=== PATIENT | female | born 1955 | race Asian ===

== ENCOUNTER 2017-09-09 13:02 | Inpatient (IN) ==
[2017-09-09] MEDS ORDERED: 0.9 % Sodium Chloride 1,000 ML IVC ONE ×2 (13:19→14:30)
[2017-09-09 13:58] LABS: Basophils # 0.1 K/mcL (0.0-0.2); Basophils % 0.3 %; Bilirubin,Urine Small (Negative); Blood,Urine Large (Negative); Clarity,Urine Cloudy (Clear); Color,Urine Dark Yellow (Yellow); Glucose,Urine (UA) Normal (Normal); Hematocrit 47.4 % (35.3-44.9); Hemoglobin 15.9 g/dL (11.5-15.4); Immature Granulocytes % 0.8 % (0-4); Ketones,Urine 40 mg/dL (Negative); Leukocyte Esterase,Urine Negative (Negative); Lymphocytes # 4.8 K/mcL (0.6-4.6); Lymphocytes % 24.3 %; Mean Corpuscular HGB Conc 33.5 g/dL (31.6-35.5); Mean Corpuscular Hemoglobin 30.9 pg (28.0-33.3); Mean Corpuscular Volume 92.2 fL (83.0-100.0); Mean Platelet Volume 10.5 fL (9.4-12.4); Monocytes # 2.8 K/mcL (0.0-1.3); Monocytes % 14.4 %; Neutrophils # 11.8 K/mcL (1.6-8.9); Nitrite,Urine Negative (Negative); Platelet Count 188 K/mcL (140-400); Protein,Urine 100 mg/dL (Neg-Trace); Red Blood Count 5.14 M/mcL (3.82-4.97); Segmented Neutrophils % 60.2 %; Specific Gravity,Urine 1.028 (1.010-1.025); Urobilinogen,Urine Normal (Normal)
[2017-09-09 14:01] LABS: INR 1.1; Prothrombin Time 12.3 Seconds (9.4-12.1)
[2017-09-09 14:03] LABS: RBC,Urine 15-30 per hpf (0-3)
[2017-09-09 14:14] LABS: Albumin 4.3 g/dL (3.5-5.7); Albumin/Globulin Ratio 1.2 (1.1-2.2); Bilirubin,Direct 0.1 mg/dL (0.0-0.2); Bilirubin,Indirect 0.3 mg/dL (0.0-1.2); Bilirubin,Total 0.4 mg/dL (0.3-1.0); Calcium 9.2 mg/dL (8.6-10.3); Globulin 3.7 g/dL (2.4-3.5); Magnesium 2.2 mg/dL (1.6-2.6); Phosphorous 4.6 mg/dL (2.7-4.5); Potassium 4.4 mEq/L (3.5-5.1)
[2017-09-09 14:20] LABS: Granular Casts,Urine Moderate per lpf (None Seen); Hyaline Casts,Urine Few per lpf (None-Few)
[2017-09-09 14:21] LABS: Amorphous Sediment,Urine Many (Few); Squamous Epithelial Cell,Urine Few per lpf (None-Few)
[2017-09-09 14:22] LABS: Bacteria,Urine Moderate per hpf (None-Few)
--- NOTE | 2017-09-09 15:05 | Emergency Department Note ---
Disposition Clinical Impression: Influenza Leukocytosis Qualifiers: Leukocytosis type: other Qualified Code(s): D72.828 - Other elevated white blood cell count Disposition: Admitted As Inpatient Condition: Good Referrals: Howie Peacock MD [Primary Care Provider] - Forms: ED Satisfaction Letter, Work/School Release General Adult HPI - General Chief complaint: ED General Medical Stated complaint: flu-like S/S Time Seen by Provider: 09/09/17 13:06 Source: patient, EMS Limitations: no limitations Nursing Notes Reviewed: Yes Vital Signs Reviewed: Yes - History of Present Illness HPI Narrative: Patient with past medical history of hepatitis C and HIV. Last CD4 count she states was fairly recent in 230. Previous records show that her CD4 count was 234 in August 2016. Patient presents today with flulike symptoms 3 days. She complains of diffuse body aches frontal headache generalized abdominal pain and cough. Cough is been nonproductive in nature. No wheezing or rhonchi heard. Subjective fever and chills at home. No temperature was measured at home. Patient has had decreased by mouth intake secondary to overall symptoms and mild nausea. Patient used to follow with with Dr. Hutson and infectious disease here but has transferred to someone closer to home. Patient states she does take all of her HIV and hepatitis C medications on a regular basis. Patient does have a history of COPD. Patient has been taking all of her inhalers as well. Patient finds chest pain is on the lateral sides of her chest and worse with coughing. Patient overall arrives tachycardic and appears to be mildly dehydrated. Pain Scale: 9 - Related Data Home Medications Medication Instructions Recorded Confirmed ALPRAZolam [Xanax 1 MG Tablet] 1 mg PO TID PRN 09/09/17 09/09/17 Albuterol Sulfate [Albuterol 1 - 2 puff IH Q4-6H PRN 09/09/17 09/09/17 Inhaler] Baclofen [Lioresal] 10 mg PO HS 09/09/17 09/09/17 Dronabinol [Marinol] 5 mg PO TID 09/09/17 09/09/17 Efavirenz/Emtricitab/Tenofovir 1 tab PO DAILY 09/09/17 09/09/17 [Atripla Tablet] Ergocalciferol (VITAMIN D2) 50,000 unit PO 2XW 09/09/17 09/09/17 [Vitamin D2] HydrOXYzine Pamoate [Vistaril] 50 mg PO QID 09/09/17 09/09/17 Omeprazole [PriLOSEC] 20 mg PO DAILY 09/09/17 09/09/17 Oxycodone HCl [Oxaydo] 5 mg PO Q6H 09/09/17 09/09/17 Penicillin VK [Pencillin VK] 500 mg PO QID 09/09/17 09/09/17 Pregabalin [Lyrica] 150 mg PO TID 09/09/17 09/09/17 Promethazine HCl 12.5 mg PO Q8H PRN 09/09/17 09/09/17 Tiotropium [Spiriva] 18 mcg IH DAILY 09/09/17 09/09/17 Allergies Allergy/AdvReac Type Severity Reaction Status Date / Time No Known Allergies Allergy Verified 01/22/16 18:26 Review of Systems: CONSTITUTIONAL: Fever, chills, weakness and fatigue HEENT: Eyes: No visual changes. Ears, Nose, Throat: No hearing loss, difficulty talking or unable to swallow. SKIN: No rash or itching. CARDIOVASCULAR: Lateral chest with coughing RESPIRATORY: Cough. GASTROINTESTINAL: No anorexia, nausea, vomiting or diarrhea. No abdominal pain or blood. GENITOURINARY: No burning on urination or hematuria. NEUROLOGICAL: Headache-frontal No dizziness, syncope, paralysis, ataxia, numbness or tingling in the extremities. No change in bowel or bladder control. MUSCULOSKELETAL: Diffuse body aches All systems ED: reviewed and negative except as stated. Past Medical History - Past Medical History Medical history: Reports: COPD, fibromyalgia, hepatitis, HIV/AIDS Surgical history: Reports: non-contributory Psychiatric history: Reports: anxiety, panic disorder, PTSD - Social History Smoking Status: Current every day smoker Smokeless Tobacco Status: No Alcohol use: Reports: none Drug use: Reports: none Physical Exam General: Dehydrated Head: Normocephalic Atraumatic Eyes: PERRL, EOMI ENT: Airway patent, no stridor Neck: supple, no meningismus Chest: Lungs clear to auscultation bilateral Cardiac: Regular rate and rhythm, no murmurs, rubs or gallops Abdomen: soft, mild generalized, nondistended; no guarding, rebound, or tenderness to percussion Musculoskeletal: Calves symmetric, nontender, no palpable cord Skin: No rash, normal skin tone Neuro: Alert and Oriented to person, place, and time; No focal deficit - General Limitations: no limitations General appearance: alert, in no apparent distress Course - Reevaluation(s) Reevaluation #1: Patient with tachycardia and significantly elevated white count in the setting of HIV and unknown CD4 count. Chest x-ray negative. Patient will undergo CT abdomen and pelvis. Influenza B+. Tamiflu started. After discussion with the hospitalist. She has been laced on broad-spectrum antibiotics including cefepime and azithromycin. Maintenance fluids have been started. - Consultations Consultation #1: Discussed with . The patient's most recent CD4 count is from 2017. This has been sent. The lab was called and this will take 2 days to return. Initial chest x-ray negative. CT abdomen and pelvis is negative. There was confusion in regards to whether the chest x-ray was done or not. Initially the patient was going to just get a CT scan of her abdomen and pelvis with now the addition of the chest. However after looking at where she has in her workup; she has already received her CT abdomen and pelvis and the chest x- ray is indeed negative. Vital Signs Temperature 98.7 F 09/09/17 13:03 Pulse Rate 112 09/09/17 13:03 Respiratory Rate 13 09/09/17 13:03 Blood Pressure 101/75 09/09/17 13:03 O2 Sat by Pulse Oximetry 94 09/09/17 13:03 Temperature 98.7 F 09/09/17 13:03 Pulse Rate 112 09/09/17 13:03 Respiratory Rate 13 09/09/17 13:03 Blood Pressure 101/75 09/09/17 13:03 O2 Sat by Pulse Oximetry 94 09/09/17 13:03 Oxygen Delivery Oxygen Delivery Room Air Medical Decision Making - Medical Records Medical records reviewed: Yes I reviewed the patient's medical records. - Lab Data Lab results reviewed: Yes I reviewed the patient's lab results. Result diagrams: 09/09/17 13:46 09/09/17 13:46 Lab Results 09/09/17 09/09/17 09/09/17 Range/Units 13:46 13:46 13:46 WBC 19.6 H (4.3-11.1) K/mcL RBC 5.14 H (3.82-4.97) M/mcL Hgb 15.9 H (11.5-15.4) g/dL Hct 47.4 H (35.3-44.9) % MCV 92.2 (83.0-100.0) fL MCH 30.9 (28.0-33.3) pg MCHC 33.5 (31.6-35.5) g/dL RDW 13.0 (11.5-14.5) % Plt Count 188 (140-400) K/mcL MPV 10.5 (9.4-12.4) fL Immature Gran % 0.8 (0-4) % Seg Neutrophils % 60.2 % Lymphocytes % 24.3 % Monocytes % 14.4 % Eosinophils % 0.0 % Basophils % 0.3 % Neutrophils # 11.8 H (1.6-8.9) K/mcL Lymphocytes # 4.8 H (0.6-4.6) K/mcL Monocytes # 2.8 H (0.0-1.3) K/mcL Eosinophils # 0.0 (0.0-0.6) K/mcL Basophils # 0.1 (0.0-0.2) K/mcL PT 12.3 H (9.4-12.1) Seconds INR 1.1 Sodium (136-145) mEq/L Potassium (3.5-5.1) mEq/L Chloride (98-107) mEq/L Carbon Dioxide (23-29) mEq/L BUN (8-23) mg/dL Creatinine (0.60-1.20) mg/dL Est GFR ( Amer) (> 60) Est GFR (Non-Af Amer) (> 60) BUN/Creatinine Ratio (6-26) Glucose (70-105) mg/dL Calculated Osmolality (280-300) Lactic Acid (0.5-2.2) mmol/L Calcium (8.6-10.3) mg/dL Phosphorus (2.7-4.5) mg/dL Magnesium (1.6-2.6) mg/dL Total Bilirubin (0.3-1.0) mg/dL Direct Bilirubin (0.0-0.2) mg/dL Indirect Bilirubin (0.0-1.2) mg/dL AST (13-39) Units/L ALT (7-52) Units/L Alkaline Phosphatase (34-104) Units/L Serum Total Protein (6.4-8.9) g/dL Albumin (3.5-5.7) g/dL Globulin (2.4-3.5) g/dL Albumin/Globulin Ratio (1.1-2.2) Urine Color Dark Yellow (Yellow) Urine Clarity Cloudy A (Clear) Urine pH 6.0 (5.0-8.0) pH Units Ur Specific [place] 1.028 H (1.010-1.025) Urine Protein 100 H (Neg-Trace) mg/dL Urine Glucose (UA) Normal (Normal) mg/dL Urine Ketones 40 H (Negative) mg/dL Urine Blood Large H (Negative) Urine Nitrite Negative (Negative) Urine Bilirubin Small H (Negative) Urine Urobilinogen Normal (Normal) mg/dL Ur Leukocyte Esterase Negative (Negative) Urine Microscopic RBC 15-30 H (0-3) per hpf Urine Microscopic WBC 5-15 H (0-3) per hpf Ur Squamous Epith Cells Few (None-Few) per lpf Amorphous Sediment Many H (Few) Urine Bacteria Moderate H (None-Few) per hpf Hyaline Casts Few (None-Few) per lpf Granular Casts Moderate H (None Seen) per lpf Ur Culture Indicated? NO (NO) Specimen Rejected 09/09/17 09/09/17 09/09/17 Range/Units 13:46 14:24 14:44 WBC (4.3-11.1) K/mcL RBC (3.82-4.97) M/mcL Hgb (11.5-15.4) g/dL Hct (35.3-44.9) % MCV (83.0-100.0) fL MCH (28.0-33.3) pg MCHC (31.6-35.5) g/dL RDW (11.5-14.5) % Plt Count (140-400) K/mcL MPV (9.4-12.4) fL Immature Gran % (0-4) % Seg Neutrophils % % Lymphocytes % % Monocytes % % Eosinophils % % Basophils % % Neutrophils # (1.6-8.9) K/mcL Lymphocytes # (0.6-4.6) K/mcL Monocytes # (0.0-1.3) K/mcL Eosinophils # (0.0-0.6) K/mcL Basophils # (0.0-0.2) K/mcL PT (9.4-12.1) Seconds INR Sodium 132 L (136-145) mEq/L Potassium 4.4 (3.5-5.1) mEq/L Chloride 98 (98-107) mEq/L Carbon Dioxide 22 L (23-29) mEq/L BUN 29 H (8-23) mg/dL Creatinine 1.25 H (0.60-1.20) mg/dL Est GFR ( Amer) 53 L (> 60) Est GFR (Non-Af Amer) 44 L (> 60) BUN/Creatinine Ratio 23 (6-26) Glucose 107 H (70-105) mg/dL Calculated Osmolality 280 (280-300) Lactic Acid 1.3 (0.5-2.2) mmol/L Calcium 9.2 (8.6-10.3) mg/dL Phosphorus 4.6 H (2.7-4.5) mg/dL Magnesium 2.2 (1.6-2.6) mg/dL Total Bilirubin 0.4 (0.3-1.0) mg/dL Direct Bilirubin 0.1 (0.0-0.2) mg/dL Indirect Bilirubin 0.3 (0.0-1.2) mg/dL AST 32 (13-39) Units/L ALT 35 (7-52) Units/L Alkaline Phosphatase 116 H (34-104) Units/L Serum Total Protein 8.0 (6.4-8.9) g/dL Albumin 4.3 (3.5-5.7) g/dL Globulin 3.7 H (2.4-3.5) g/dL Albumin/Globulin Ratio 1.2 (1.1-2.2) Urine Color (Yellow) Urine Clarity (Clear) Urine pH (5.0-8.0) pH Units Ur Specific [place] (1.010-1.025) Urine Protein (Neg-Trace) mg/dL Urine Glucose (UA) (Normal) mg/dL Urine Ketones (Negative) mg/dL Urine Blood (Negative) Urine Nitrite (Negative) Urine Bilirubin (Negative) Urine Urobilinogen (Normal) mg/dL Ur Leukocyte Esterase (Negative) Urine Microscopic RBC (0-3) per hpf Urine Microscopic WBC (0-3) per hpf Ur Squamous Epith Cells (None-Few) per lpf Amorphous Sediment (Few) Urine Bacteria (None-Few) per hpf Hyaline Casts (None-Few) per lpf Granular Casts (None Seen) per lpf Ur Culture Indicated? (NO) Specimen Rejected Hemolyzed - Radiology Data Radiology results reviewed: Yes I reviewed the patient's radiology results. - EKG Data EKG #1 EKG attestation: Yes I reviewed and interpreted this EKG. EKG results narrative: EKG shows sinus tachycardia with no significant ST elevations or depressions. Patient has no significant change from 01/22/16. Attestation Statement - Attestation Attestation: I examined this patient and my medical decision-making was reviewed with the Resident Physician. I agree with the documented findings, disposition and treatment plan as described except to the extent set forth below. Patient to the ED with a chief complaint of cough fever difficulty breathing. She states that for a few days. She is noted to be HIV positive. Last CD count was in the 200s. Patient is no distress on exam. Lungs diminished with rhonchi. Plan. Cardiac workup. Chest x-ray is clear. She is positive for flu B. Her white blood cell count is 19,000. We will cover with broad- spectrum antibiotic and admit.
[2017-09-09] MEDS ORDERED: Azithromycin 500 MG in D5% in Water 250 ML IVPB STA (15:14)
[2017-09-09] MEDS ORDERED: Cefepime HCl 2,000 MG in D5% in Water (Mini-Bag+) 100 ML IVPB STA (15:14)
[2017-09-09] MEDS ORDERED: Ondansetron 4 MG/2 ML VIAL IVP PRN (15:35)
[2017-09-09] MEDS ORDERED: *HR* Promethazine 25 MG/ML VIAL IVP PRN (15:35)
[2017-09-09] MEDS ORDERED: Naloxone 0.4 MG/ML INJ IVP PRN (15:35)
[2017-09-09] MEDS ORDERED: Acetaminophen 325 MG TABLET PO PRN (15:35)
[2017-09-09] MEDS ORDERED: hydrOXYzine pamoate 25 MG CAPSULE PO PRN (16:07)
--- NOTE | 2017-09-09 16:14 | Internal Med History&Physical ---
Date of Encounter: 09/09/17 Time of Encounter: 15:00 Assessment and Plan (1) Sepsis Current visit: Yes Status: Acute Will admit the pt into Tele She does meet Sepsis criteria with immunocompromised state, elevated WBC, Tachycardia, low grade temp and source of inf as influenza A positive continue her on IV hydration Blood cx were sent in the ER Will send for sputum cx, Legionella, strep PNA and Resp vital panel empirical abx Cefepime ( Pseudomonas ) + Azitrho ( for Atypical + MAC coverage ) Qualifiers: Qualified Code(s): A41.9 - Sepsis, unspecified organism (2) Influenza A virus present Current visit: Yes Status: Acute on [place] flu (3) COPD exacerbation Current visit: Yes Status: Acute Reviewed CXR showed emphysematous changes.. No infiltrates / consolidation Cont empirical abx cont Duoneb as CHIRAG + O2 No need of steroids now..since she does not have significant wheezing (4) Acute bronchitis Current visit: Yes Status: Acute due to Influenza A positive also concerned for supra infections with bacteria cont broad spec abx Qualifiers: Qualified Code(s): J20.9 - Acute bronchitis, unspecified (5) Immunocompromised patient Current visit: Yes Status: Acute (6) AIDS (acquired immunodeficiency syndrome), CD4 >200 and <500 Current visit: Yes Status: Acute Her last CD4 count 236 in 09/05 ER already ordered for CD4 counts will f/u on them cont Azithromycin Resumed all home HIV meds (7) Hepatitis C Current visit: Yes Status: Chronic Qualifiers: Viral hepatitis chronicity: chronic Hepatic coma status: without hepatic coma Qualified Code(s): B18.2 - Chronic viral hepatitis C (8) Tobacco dependence Current visit: Yes Status: Acute counseled to quit on nicotine patch Internal Medicine - H&P: HPI Chief complaint: Shortness of breath, flu like symptoms Admitted From: Emergency Dept Plans for Post Hospital Care: Home History of present illness: Ms. Winslow is a 61 year old female with known PMH of COPD, fibromyalgia, hepatitis C and HIV/AIDS who is on active therapy now she presented to ER with fl like symptoms from last 2-3 days. Pt stated she has been having chills, fever , cold, URI symptoms, cough with yellowish expectoration. She does c/o SOB. Denied any CP. She does have generalized body aches. She denied any sick contacts at home, denied any recent travel history. She has been taking her HIV medications regularly. Her last CD4 count was 236 from 09/01/16. Past Med Surg Social Fam HX - Past Medical History Medical history: COPD, fibromyalgia, hepatitis, HIV/AIDS Psychiatric history: anxiety, panic disorder, PTSD - Past Surgical History Surgical History: non-contributory - Social History Smoking Status: Current every day smoker Smokeless Tobacco Status: No Alcohol use: none Drug use: none - Additional Family History Additional family history: Family hsitory reviewed and non contribuitory to current problem. Internal Medicine - H&P: Meds ALPRAZolam [Xanax 1 MG Tablet] 1 mg PO TID PRN 09/09/17 [History] Albuterol Sulfate [Albuterol Inhaler] 1 - 2 puff IH Q4-6H PRN 09/09/17 [History] Baclofen [Lioresal] 10 mg PO HS 09/09/17 [History] Dronabinol [Marinol] 5 mg PO TID 09/09/17 [History] Efavirenz/Emtricitab/Tenofovir [Atripla Tablet] 1 tab PO DAILY 09/09/17 [History ] Ergocalciferol (VITAMIN D2) [Vitamin D2] 50,000 unit PO 2XW 09/09/17 [History] HydrOXYzine Pamoate [Vistaril] 50 mg PO QID 09/09/17 [History] Omeprazole [PriLOSEC] 20 mg PO DAILY 09/09/17 [History] Oxycodone HCl [Oxaydo] 5 mg PO Q6H 09/09/17 [History] Penicillin VK [Pencillin VK] 500 mg PO QID 09/09/17 [History] Pregabalin [Lyrica] 150 mg PO TID 09/09/17 [History] Promethazine HCl 12.5 mg PO Q8H PRN 09/09/17 [History] Tiotropium [Spiriva] 18 mcg IH DAILY 09/09/17 [History] 3 Allergy/AdvReac Type Severity Reaction Status Date / Time No Known Allergies Allergy Verified 01/22/16 18:26 All Systems PM: A 10-system review of systems was performed and is negative for pertinent findings except as documented above in the HPI. Review of systems: All the systems are reviewed everything is benign except the systems and symptoms I mentioned in the history of present illness - Constitutional Vitals: Temp Pulse Resp BP Pulse Ox 98.7 F 112 13 101/75 94 09/09/17 13:03 09/09/17 13:03 09/09/17 13:03 09/09/17 13:03 09/09/17 13:03 General appearance: Present: A&O X 3 Exam: Looks very lethargic and week - Head Head exam: Present: atraumatic, normal inspection - Neck Neck exam general surgery: Present: supple - Respiratory Respiratory exam: Present: decreased breath sounds. Absent: rales, respiratory distress, rhonchi, wheezes - Cardiovascular Cardiovascular exam: Present: RRR, +S1, +S2. Absent: tachycardia - GI/Abdominal GI/Abdominal exam: Present: normal bowel sounds, soft, tenderness (clarissa umbilical and epigastric). Absent: distended, guarding, rebound, rigid - Extremities Exam Extremities exam: Absent: calf tenderness, pedal edema, tenderness - Back Exam Back exam: Absent: CVA tenderness (L), CVA tenderness (R) - Neurological Exam Neurological exam: Present: alert, oriented X3 - Psychiatric Psychiatric exam: Present: normal affect, normal mood - Skin Skin exam: Absent: rash Internal Med - H&P Results - Labs CBC & Chem 7: 09/09/17 13:46 09/09/17 13:46 Labs: Short CBC 09/09/17 Range/Units 13:46 WBC 19.6 H (4.3-11.1) K/mcL Hgb 15.9 H (11.5-15.4) g/dL Hct 47.4 H (35.3-44.9) % Plt Count 188 (140-400) K/mcL Neutrophils # 11.8 H (1.6-8.9) K/mcL BMP 09/09/17 13:46 Sodium 132 L Potassium 4.4 Chloride 98 Carbon Dioxide 22 L BUN 29 H Creatinine 1.25 H Glucose 107 H Calcium 9.2 Liver Function 09/09/17 Range/Units 13:46 Total Bilirubin 0.4 (0.3-1.0) mg/dL Direct Bilirubin 0.1 (0.0-0.2) mg/dL AST 32 (13-39) Units/L ALT 35 (7-52) Units/L Alkaline Phosphatase 116 H (34-104) Units/L Albumin 4.3 (3.5-5.7) g/dL Urine 09/09/17 Range/Units 13:46 Urine Color Dark Yellow (Yellow) Urine Clarity Cloudy A (Clear) Urine pH 6.0 (5.0-8.0) pH Units Ur Specific [place] 1.028 H (1.010-1.025) Urine Protein 100 H (Neg-Trace) mg/dL Urine Glucose (UA) Normal (Normal) mg/dL - Impressions ITS Impressions Abdomen/Pelvis CT 09/09/17 14:29 IMPRESSION: Unremarkable CT abdomen and pelvis with contrast with exception nonobstructing calculi right kidney and pre calculus formation bilateral. No acute abnormality is evident. D/ / Marquise Isaacs / Marquise Isaacs Interpreting Provider: Marquise Isaacs Chest X-Ray 09/09/17 15:22 IMPRESSION: Calcific atherosclerotic disease aorta. No acute disease. D/ / Marquise Isaacs / Marquise Isaacs Interpreting Provider: Marquise Isaacs
[2017-09-09] MEDS: Ipratropium/Albuterol Neb 3 ML IH SCH ×3 (16:35→23:49)
[2017-09-09] MEDS: Cefepime HCl 1,000 MG in Water for inj. (sterile) 20 ML 10 ML IVP SCH (19:11)
[2017-09-09 19:12] LABS: Adenovirus Not Detected (Not Detect); Bordetella Pertussis Not Detected (Not Detect); Chlamydophila pneumoniae Not Detected (Not Detect); Coronavirus 229E Not Detected (Not Detect); Coronavirus HKU1 Not Detected (Not Detect); Coronavirus NL63 Not Detected (Not Detect); Coronavirus OC43 Not Detected (Not Detect); Human Metapneumovirus Not Detected (Not Detect); Human Rhinovirus/Enterovirus Not Detected (Not Detect); Influenza A Subtype 2009 H1 Not Detected (Not Detect); Influenza A Untypeable Not Detected (Not Detect); Influenza B ***DETECTED*** (Not Detect); Mycoplasma pneumoniae Not Detected (Not Detect); Parainfluenza Virus 1 Not Detected (Not Detect); Parainfluenza Virus 2 Not Detected (Not Detect); Parainfluenza Virus 3 Not Detected (Not Detect); Parainfluenza Virus 4 Not Detected (Not Detect); Respiratory Syncytial Virus Not Detected (Not Detect)
[2017-09-09] MEDS: *HR* HYDROcodone/Acet 5/325 mg TABLET PO PRN (19:12)
[2017-09-09] MEDS: 0.9 % Sodium Chloride 1,000 ML IVC SCH (19:12)
[2017-09-09] MEDS: Nicotine 21 MG PATCH.TD24 TD SCH (19:12)
[2017-09-09] MEDS: Baclofen 10 MG TABLET PO SCH (21:21)
[2017-09-09] MEDS: Pregabalin 75 MG CAPSULE PO SCH (21:21)
[2017-09-09] MEDS: Oseltamivir Phosphate 30 MG CAPSULE PO SCH (21:21)
[2017-09-09] MEDS: ALPRAZolam 1 MG TABLET PO PRN (21:28)
[2017-09-10] MEDS ORDERED: Cefepime HCl 1,000 MG in D5% in Water (Mini-Bag+) 100 ML IVPB SCH
[2017-09-10] MEDS: 0.9 % Sodium Chloride 1,000 ML IVC SCH (01:24)
[2017-09-10] MEDS: *HR* HYDROcodone/Acet 5/325 mg TABLET PO PRN ×3 (02:07→18:24)
[2017-09-10] MEDS: Ipratropium/Albuterol Neb 3 ML IH SCH ×7 (03:28→23:32)
[2017-09-10] MEDS: Cefepime HCl 1,000 MG in Water for inj. (sterile) 20 ML 10 ML IVP SCH ×2 (05:53→18:42)
[2017-09-10] MEDS: *HR* Enoxaparin 40 MG/0.4 ML SYRINGE SQ SCH (05:54)
[2017-09-10 06:33] LABS: Basophils % 0.1 %; Hematocrit 37.3 % (35.3-44.9); Immature Granulocytes % 0.5 % (0-4); Lymphocytes # 1.6 K/mcL (0.6-4.6); Lymphocytes % 19.4 %; Mean Corpuscular HGB Conc 32.4 g/dL (31.6-35.5); Mean Corpuscular Hemoglobin 30.3 pg (28.0-33.3); Mean Corpuscular Volume 93.5 fL (83.0-100.0); Mean Platelet Volume 10.9 fL (9.4-12.4); Monocytes # 0.8 K/mcL (0.0-1.3); Monocytes % 9.9 %; Neutrophils # 5.6 K/mcL (1.6-8.9); Nucleated Red Blood Cells 0.3 /100 WBC (0); Platelet Count 128 K/mcL (140-400); Red Blood Count 3.99 M/mcL (3.82-4.97); Red Cell Distribution Width 13.2 % (11.5-14.5); Segmented Neutrophils % 70.1 %
[2017-09-10 06:34] LABS: Hemoglobin 12.1 g/dL (11.5-15.4)
[2017-09-10 06:38] LABS: Alanine Aminotransferase 21 Units/L (7-52); Albumin 3.1 g/dL (3.5-5.7); Albumin/Globulin Ratio 1.2 (1.1-2.2); Alkaline Phosphatase 76 Units/L (34-104); Aspartate Amino Transferase 22 Units/L (13-39); BUN/Creatinine Ratio 16 (6-26); Bilirubin,Total 0.3 mg/dL (0.3-1.0); Blood Urea Nitrogen 14 mg/dL (8-23); Calcium 7.8 mg/dL (8.6-10.3); Carbon Dioxide 21 mEq/L (23-29); Chloride 111 mEq/L (98-107); Chol/HDL Ratio 6.5 (0-4.9); Cholesterol 129 mg/dL (< 200); Globulin 2.6 g/dL (2.4-3.5); Glucose 150 mg/dL (70-105); HDL Cholesterol 20 mg/dL (40-59); LDL Cholesterol,Calculated 81 mg/dL (0-99); Magnesium 1.8 mg/dL (1.6-2.6); Osmolality,Calculated 285 (280-300); Phosphorous 2.1 mg/dL (2.7-4.5); Potassium 3.3 mEq/L (3.5-5.1); Sodium 136 mEq/L (136-145); Total Protein 5.7 g/dL (6.4-8.9); Triglycerides 142 mg/dL (< 150); eGFR For African Americans > 60 (> 60); eGFR For Non-African Americans > 60 (> 60)
[2017-09-10] MEDS ORDERED: Potassium Chloride Elixir 20 MEQ/15 ML UDC PO ONE (08:28)
[2017-09-10] MEDS: Oseltamivir Phosphate 30 MG CAPSULE PO SCH ×2 (08:46→22:14)
[2017-09-10] MEDS: EFAVIRENZ/EMTRICITAB/TENOFOVIR 1 EACH TABLET PO SCH (08:47)
[2017-09-10] MEDS: Cholecalciferol (D-3) 1,000 UNIT TABLET PO SCH (08:47)
[2017-09-10] MEDS: ALPRAZolam 1 MG TABLET PO PRN ×3 (08:47→22:25)
[2017-09-10] MEDS: Pregabalin 75 MG CAPSULE PO SCH ×3 (08:47→22:14)
[2017-09-10] MEDS: Nicotine 21 MG PATCH.TD24 TD SCH (08:48)
--- NOTE | 2017-09-10 15:56 | Electrocardiograph Report ---
[place] [id number] Test Date: 2017-09-09 Pat Name: Cayla Winslow Department: 103 Room: 3A47 Gender: F Clinical Account Liaison: LISSETH CAMPOSB: 1955 Requested By: Papa Lockett Order Number: [id number] Reading MD: Sunshine Arciniega Measurements Intervals [place] Rate: 107 P: 81 MA: 145 QRS: 93 QRSD: 88 T: 75 QT: 317 QTc: 379 Interpretive Statements SINUS TACHYCARDIA POSSIBLE RIGHT ATRIAL ENLARGEMENT [0.25mV P WAVE] POSSIBLE LEFT ATRIAL ENLARGEMENT [-0.1mV P WAVE IN V1/V2] BORDERLINE RIGHT AXIS DEVIATION [QRS AXIS > 90] ABNORMAL RHYTHM ECG Electronically Signed On 09-10-2017 15:54:31 EST by Sunshine Arciniega
--- NOTE | 2017-09-10 17:44 | Internal Med Progress Note ---
Date of Encounter: 09/10/17 Time of Encounter: 09:40 - Assessment and plan (1) Influenza B Current Visit: Yes Status: Acute Assessment and plan: Respiratory infection panel positive for influenza B. Continue Tamiflu, supplemental oxygen as needed. Supportive care. (2) HIV (human immunodeficiency virus infection) Current Visit: Yes Status: Chronic Assessment and plan: Continue home medications. (3) COPD (chronic obstructive pulmonary disease) Current Visit: Yes Status: Chronic Assessment and plan: Continue when necessary breathing treatments and supplemental oxygen. Not in acute exacerbation. Qualifiers: COPD type: unspecified COPD Qualified Code(s): J44.9 - Chronic obstructive pulmonary disease, unspecified (4) Acute bronchitis Current Visit: Yes Status: Acute Assessment and plan: Acute viral bronchitis, possible bacterial superinfection. Continue IV cefepime and azithromycin. Sputum culture grows moderate gram-positive cocci. Follow-up blood and sputum cultures. Check EKG for prolonged QT. Supportive care and supplemental oxygen. When necessary antitussives. Qualifiers: Bronchitis organism: unspecified organism Qualified Code(s): J20.9 - Acute bronchitis, unspecified (5) Sepsis Current Visit: Yes Status: Acute Assessment and plan: Presented with fever, tachycardia, leukocytosis due to influenza and bronchitis. Continue IV hydration, Tamiflu and IV antibiotics. Follow-up cultures. Monitor vital signs closely. Serum lactic acid within normal limits. Qualifiers: Sepsis type: sepsis due to unspecified organism Qualified Code(s): A41.9 - Sepsis, unspecified organism (6) Tobacco dependence Current Visit: Yes Status: Chronic Assessment and plan: Nicotine transdermal patch. (7) Hepatitis C Current Visit: Yes Status: Chronic Qualifiers: Viral hepatitis chronicity: chronic Hepatic coma status: without hepatic coma Qualified Code(s): B18.2 - Chronic viral hepatitis C (8) Hypokalemia Current Visit: Yes Status: Acute Assessment and plan: Supplement with oral potassium chloride. (9) Hypophosphatemia Current Visit: Yes Status: Acute Assessment and plan: Supplement with oral Neutra-Phos. - Subjective Interval history: Feels better; improved dyspnea, continues to have intermittent productive cough , chest pains, fatigue; - Constitutional Vitals: Temp Pulse Resp BP Pulse Ox 97.9 F 103 13 100/63 95 09/10/17 15:55 09/10/17 15:55 09/10/17 15:55 09/10/17 15:55 09/10/17 15:55 General appearance: Present: cachectic, A&O X 3, answers questions appropriately - Respiratory Respiratory exam: Present: CTAB (coarse breath sounds B/L). Absent: accessory muscle use, rales, rhonchi, wheezes - Cardiovascular Cardiovascular exam: Present: RRR, +S1, +S2. Absent: diastolic murmur, gallop, rubs, systolic murmur - GI/Abdominal GI/Abdominal exam: Present: normal bowel sounds, soft, no peritoneal signs. Absent: distended, tenderness - Extremities Exam Extremities exam: Present: full ROM, warm, radial pulses palpable and symmetrical. Absent: calf tenderness, cyanotic, pedal edema Internal Medicine: Result - Labs CBC & Chem 7: 09/10/17 05:29 09/10/17 05:29 Labs: Short CBC 09/10/17 Range/Units 05:29 WBC 8.0 D (4.3-11.1) K/mcL Hgb 12.1 D (11.5-15.4) g/dL Hct 37.3 (35.3-44.9) % Plt Count 128 L (140-400) K/mcL Neutrophils # 5.6 (1.6-8.9) K/mcL BMP 09/10/17 05:29 Sodium 136 Potassium 3.3 L Chloride 111 H Carbon Dioxide 21 L BUN 14 Creatinine 0.85 Glucose 150 H Calcium 7.8 L Liver Function 09/10/17 Range/Units 05:29 Total Bilirubin 0.3 (0.3-1.0) mg/dL AST 22 (13-39) Units/L ALT 21 (7-52) Units/L Alkaline Phosphatase 76 (34-104) Units/L Albumin 3.1 L (3.5-5.7) g/dL - ABG Interpretation ABG results: PT/INR, D-dimer PT 12.3 Seconds (9.4-12.1) H 09/09/17 13:46 Consult Discharge Plan - Plan Referrals: Howie Peacock MD [Primary Care Provider] -
[2017-09-10] MEDS: Azithromycin 500 MG in D5% in Water 250 ML IVPB SCH (18:19)
[2017-09-10] MEDS: Baclofen 10 MG TABLET PO SCH (22:14)
[2017-09-11] MEDS: Ipratropium/Albuterol Neb 3 ML IH SCH ×6 (03:40→23:58)
[2017-09-11 05:28] LABS: Basophils % 0.2 %; Eosinophils % 0.7 %; Hematocrit 37.9 % (35.3-44.9); Hemoglobin 12.4 g/dL (11.5-15.4); Immature Granulocytes % 0.7 % (0-4); Lymphocytes # 1.1 K/mcL (0.6-4.6); Lymphocytes % 19.3 %; Mean Corpuscular HGB Conc 32.7 g/dL (31.6-35.5); Mean Corpuscular Hemoglobin 30.9 pg (28.0-33.3); Mean Corpuscular Volume 94.5 fL (83.0-100.0); Mean Platelet Volume 10.9 fL (9.4-12.4); Monocytes # 0.4 K/mcL (0.0-1.3); Monocytes % 7.5 %; Neutrophils # 3.9 K/mcL (1.6-8.9); Platelet Count 115 K/mcL (140-400); Red Blood Count 4.01 M/mcL (3.82-4.97); Red Cell Distribution Width 13.7 % (11.5-14.5); Segmented Neutrophils % 71.6 %
[2017-09-11 05:42] LABS: BUN/Creatinine Ratio 13 (6-26); Blood Urea Nitrogen 10 mg/dL (8-23); Calcium 8.3 mg/dL (8.6-10.3); Carbon Dioxide 25 mEq/L (23-29); Chloride 113 mEq/L (98-107); Glucose 79 mg/dL (70-105); Magnesium 1.7 mg/dL (1.6-2.6); Osmolality,Calculated 292 (280-300); Phosphorous 2.2 mg/dL (2.7-4.5); Sodium 142 mEq/L (136-145); eGFR For African Americans > 60 (> 60); eGFR For Non-African Americans > 60 (> 60)
[2017-09-11] MEDS: Cefepime HCl 1,000 MG in Water for inj. (sterile) 20 ML 10 ML IVP SCH (05:42)
[2017-09-11] MEDS: *HR* Enoxaparin 40 MG/0.4 ML SYRINGE SQ SCH (05:43)
[2017-09-11] MEDS: *HR* HYDROcodone/Acet 5/325 mg TABLET PO PRN ×3 (08:59→22:34)
[2017-09-11] MEDS: ALPRAZolam 1 MG TABLET PO PRN ×3 (08:59→22:35)
[2017-09-11] MEDS: Cholecalciferol (D-3) 1,000 UNIT TABLET PO SCH (08:59)
[2017-09-11] MEDS: Pregabalin 75 MG CAPSULE PO SCH ×3 (08:59→22:34)
[2017-09-11] MEDS: Oseltamivir Phosphate 30 MG CAPSULE PO SCH ×2 (08:59→22:34)
[2017-09-11] MEDS: EFAVIRENZ/EMTRICITAB/TENOFOVIR 1 EACH TABLET PO SCH (08:59)
[2017-09-11] MEDS: Nicotine 21 MG PATCH.TD24 TD SCH (09:00)
--- NOTE | 2017-09-11 12:59 | Electrocardiograph Report ---
[place] [id number] Test Date: 2017-09-11 Pat Name: Cayla Winslow Department: 115 Room: 3A47 Gender: F [employer]: : 1955 Requested By: Shea Macario Order Number: [id number] Reading MD: Sunshine Arciniega Measurements Intervals [place] Rate: 117 P: 80 NV: 144 QRS: 90 QRSD: 82 T: 51 QT: 330 QTc: 400 Interpretive Statements SINUS TACHYCARDIA ABNORMAL RHYTHM ECG Electronically Signed On 09-11-2017 12:57:52 EST by Sunshine Arciniega
[2017-09-11] MEDS ORDERED: Albuterol 2.5 MG/3 ML NEBULIZER IH PRN (14:24)
--- NOTE | 2017-09-11 15:27 | Internal Med Progress Note ---
Date of Encounter: 09/11/17 Time of Encounter: 11:45 - Assessment and plan (1) Influenza B Current Visit: Yes Status: Acute Assessment and plan: Respiratory infection panel positive for influenza B. Continue Tamiflu, supplemental oxygen as needed. Supportive care. (2) HIV (human immunodeficiency virus infection) Current Visit: Yes Status: Chronic Assessment and plan: Continue home medications. (3) COPD (chronic obstructive pulmonary disease) Current Visit: Yes Status: Chronic Assessment and plan: Continue when necessary breathing treatments and supplemental oxygen. Not in acute exacerbation. Qualifiers: COPD type: unspecified COPD Qualified Code(s): J44.9 - Chronic obstructive pulmonary disease, unspecified (4) Acute bronchitis Current Visit: Yes Status: Acute Assessment and plan: Acute viral bronchitis, possible bacterial superinfection. 2 sets of blood cultures remain negative. Sputum culture with normal upper respiratory vandana. We will de-escalate antibiotics to IV Rocephin and azithromycin. Check EKG for prolonged QT- QTc is 417sec. Supportive care and supplemental oxygen. When necessary antitussives. Add mucolytics. Qualifiers: Bronchitis organism: unspecified organism Qualified Code(s): J20.9 - Acute bronchitis, unspecified (5) Sepsis Current Visit: Yes Status: Resolved Assessment and plan: Presented with fever, tachycardia, leukocytosis due to influenza and bronchitis. Improved. Continue Tamiflu and IV antibiotics. Cultures negative. Monitor vital signs closely. Serum lactic acid within normal limits. Qualifiers: Sepsis type: sepsis due to unspecified organism Qualified Code(s): A41.9 - Sepsis, unspecified organism (6) Tobacco dependence Current Visit: Yes Status: Chronic (7) Hepatitis C Current Visit: Yes Status: Chronic Qualifiers: Viral hepatitis chronicity: chronic Hepatic coma status: without hepatic coma Qualified Code(s): B18.2 - Chronic viral hepatitis C (8) Hypokalemia Current Visit: Yes Status: Resolved (9) Hypophosphatemia Current Visit: Yes Status: Acute Assessment and plan: Supplement with oral Neutra-Phos. - Subjective Interval history: Reports feeling worse today; reports fatigue, chills, generalized weakness and intermittent shortness of breath; - Constitutional Vitals: Temp Pulse Resp BP Pulse Ox 98.5 F 98 16 106/62 94 09/11/17 15:03 09/11/17 15:03 09/11/17 15:03 09/11/17 15:03 09/11/17 15:03 General appearance: Present: cachectic, A&O X 3, answers questions appropriately - Respiratory Respiratory exam: Present: CTAB (coarse breath sounds B/L). Absent: accessory muscle use, rales, rhonchi, wheezes - Cardiovascular Cardiovascular exam: Present: RRR, +S1, +S2. Absent: diastolic murmur, gallop, rubs, systolic murmur - GI/Abdominal GI/Abdominal exam: Present: normal bowel sounds, soft, no peritoneal signs. Absent: distended, tenderness - Extremities Exam Extremities exam: Present: full ROM, warm, radial pulses palpable and symmetrical. Absent: calf tenderness, cyanotic, pedal edema Internal Medicine: Result - Labs CBC & Chem 7: 09/11/17 05:09 09/11/17 05:09 Labs: Short CBC 09/11/17 Range/Units 05:09 WBC 5.5 (4.3-11.1) K/mcL Hgb 12.4 (11.5-15.4) g/dL Hct 37.9 (35.3-44.9) % Plt Count 115 L (140-400) K/mcL Neutrophils # 3.9 (1.6-8.9) K/mcL BMP 09/11/17 05:09 Sodium 142 Potassium 4.0 Chloride 113 H Carbon Dioxide 25 BUN 10 Creatinine 0.78 Glucose 79 Calcium 8.3 L - ABG Interpretation ABG results: PT/INR, D-dimer PT 12.3 Seconds (9.4-12.1) H 09/09/17 13:46 Consult Discharge Plan - Plan Referrals: Howie Peacock MD [Primary Care Provider] -
[2017-09-11] MEDS: cefTRIAXone 2,000 MG in Water for inj. (sterile) 20 ML 20 ML IVP SCH (16:05)
[2017-09-11] MEDS: Azithromycin 500 MG in D5% in Water 250 ML IVPB SCH (16:06)
[2017-09-11] MEDS: Baclofen 10 MG TABLET PO SCH (22:34)
[2017-09-12] MEDS: Ipratropium/Albuterol Neb 3 ML IH SCH ×6 (03:41→23:59)
[2017-09-12] MEDS: *HR* Enoxaparin 40 MG/0.4 ML SYRINGE SQ SCH (06:17)
[2017-09-12] MEDS: Oseltamivir Phosphate 30 MG CAPSULE PO SCH ×2 (08:00→20:47)
[2017-09-12] MEDS: EFAVIRENZ/EMTRICITAB/TENOFOVIR 1 EACH TABLET PO SCH (08:00)
[2017-09-12] MEDS: Nicotine 21 MG PATCH.TD24 TD SCH (08:01)
[2017-09-12] MEDS: Cholecalciferol (D-3) 1,000 UNIT TABLET PO SCH (08:01)
[2017-09-12] MEDS: Pregabalin 75 MG CAPSULE PO SCH ×3 (08:01→20:46)
[2017-09-12] MEDS: cefTRIAXone 2,000 MG in Water for inj. (sterile) 20 ML 20 ML IVP SCH (08:01)
[2017-09-12] MEDS: ALPRAZolam 1 MG TABLET PO PRN ×3 (08:07→20:46)
[2017-09-12] MEDS: *HR* HYDROcodone/Acet 5/325 mg TABLET PO PRN ×3 (08:07→20:51)
--- NOTE | 2017-09-12 10:43 | Internal Med Progress Note ---
Date of Encounter: 09/12/17 Time of Encounter: 10:00 - Assessment and plan (1) Influenza B Current Visit: Yes Status: Acute Assessment and plan: Improving, patient may have a longer recovery due to immunosuppression; Respiratory infection panel positive for influenza B. Continue Tamiflu, supplemental oxygen as needed. Supportive care. (2) HIV (human immunodeficiency virus infection) Current Visit: Yes Status: Chronic Assessment and plan: Continue home medications. (3) COPD (chronic obstructive pulmonary disease) Current Visit: Yes Status: Chronic Assessment and plan: Continue when necessary breathing treatments and supplemental oxygen. Not in acute exacerbation. Qualifiers: COPD type: unspecified COPD Qualified Code(s): J44.9 - Chronic obstructive pulmonary disease, unspecified (4) Acute bronchitis Current Visit: Yes Status: Acute Assessment and plan: Acute viral bronchitis, possible bacterial superinfection. 2 sets of blood cultures remain negative. Sputum culture with normal upper respiratory vandana. Continue IV Rocephin and azithromycin. Check EKG for prolonged QT- pending today. Supportive care and supplemental oxygen. When necessary antitussives and Mucinex; Qualifiers: Bronchitis organism: unspecified organism Qualified Code(s): J20.9 - Acute bronchitis, unspecified (5) Sepsis Current Visit: Yes Status: Resolved Qualifiers: Sepsis type: sepsis due to unspecified organism Qualified Code(s): A41.9 - Sepsis, unspecified organism (6) Tobacco dependence Current Visit: Yes Status: Chronic Assessment and plan: Nicotine transdermal patch. (7) Hepatitis C Current Visit: Yes Status: Chronic Qualifiers: Viral hepatitis chronicity: chronic Hepatic coma status: without hepatic coma Qualified Code(s): B18.2 - Chronic viral hepatitis C (8) Hypokalemia Current Visit: Yes Status: Resolved (9) Hypophosphatemia Current Visit: Yes Status: Resolved Assessment and plan: improved with Neutraphos supplements; - Subjective Interval history: Feels much better today; siting up in bed, sketching; improving cough, malaise, fatigue; no dyspnea, dizziness; - Constitutional Vitals: Temp Pulse Resp BP Pulse Ox 98.6 F 84 16 108/74 98 09/12/17 06:50 09/12/17 06:50 09/12/17 07:13 09/12/17 06:50 09/12/17 08:05 General appearance: Present: cachectic, A&O X 3, answers questions appropriately - Respiratory Respiratory exam: Present: CTAB (coarse breath sounds B/L, no active wheezing). Absent: accessory muscle use, rales, rhonchi, wheezes - Cardiovascular Cardiovascular exam: Present: RRR, +S1, +S2. Absent: diastolic murmur, gallop, rubs, systolic murmur - GI/Abdominal GI/Abdominal exam: Present: normal bowel sounds, soft, no peritoneal signs. Absent: distended, tenderness - Extremities Exam Extremities exam: Present: full ROM, warm, radial pulses palpable and symmetrical. Absent: calf tenderness, cyanotic, pedal edema Internal Medicine: Result - Labs CBC & Chem 7: 09/11/17 05:09 09/11/17 05:09 - ABG Interpretation ABG results: PT/INR, D-dimer PT 12.3 Seconds (9.4-12.1) H 09/09/17 13:46 Consult Discharge Plan - Plan Referrals: Howie Peaccok MD [Primary Care Provider] -
[2017-09-12] MEDS: Azithromycin 500 MG in D5% in Water 250 ML IVPB SCH (14:59)
[2017-09-12] MEDS: Baclofen 10 MG TABLET PO SCH (20:46)
[2017-09-13] MEDS: Ipratropium/Albuterol Neb 3 ML IH SCH ×3 (04:52→11:01)
[2017-09-13] MEDS: *HR* Enoxaparin 40 MG/0.4 ML SYRINGE SQ SCH (05:48)
[2017-09-13 07:25] VITALS: BP 119/78
[2017-09-13] MEDS: Nicotine 21 MG PATCH.TD24 TD SCH (08:53)
[2017-09-13] MEDS: cefTRIAXone 2,000 MG in Water for inj. (sterile) 20 ML 20 ML IVP SCH (08:54)
[2017-09-13] MEDS: Pregabalin 75 MG CAPSULE PO SCH (08:56)
[2017-09-13] MEDS: EFAVIRENZ/EMTRICITAB/TENOFOVIR 1 EACH TABLET PO SCH (08:56)
[2017-09-13] MEDS: Cholecalciferol (D-3) 1,000 UNIT TABLET PO SCH (08:56)
[2017-09-13] MEDS: Oseltamivir Phosphate 30 MG CAPSULE PO SCH (08:57)
[2017-09-13] MEDS: *HR* HYDROcodone/Acet 5/325 mg TABLET PO PRN (08:57)
[2017-09-13] MEDS: ALPRAZolam 1 MG TABLET PO PRN (08:58)
--- NOTE | 2017-09-13 11:29 | Discharge Summary ---
- NOTES TO OUTPATIENT PROVIDER Notes to Outpatient Provider: D/cng on Levaquin and Tamiflu; check EKG for QT Orders not resulted at time of discharge: Pending orders 09/12/17 13:02 ECG 12 lead ECG [ECG] Stat Date of Encounter: 09/13/17 Time of Encounter: 11:00 - Discharge Diagnosis (1) Influenza B Priority: Primary Status: Acute (2) HIV (human immunodeficiency virus infection) Priority: Secondary Status: Chronic (3) COPD (chronic obstructive pulmonary disease) Priority: Secondary Status: Chronic Qualifiers: COPD type: unspecified COPD Qualified Code(s): J44.9 - Chronic obstructive pulmonary disease, unspecified (4) Acute bronchitis Priority: Primary Status: Acute Qualifiers: Bronchitis organism: unspecified organism Qualified Code(s): J20.9 - Acute bronchitis, unspecified (5) Sepsis Priority: Primary Status: Resolved Qualifiers: Sepsis type: sepsis due to unspecified organism Qualified Code(s): A41.9 - Sepsis, unspecified organism (6) Tobacco dependence Priority: Secondary Status: Chronic (7) Hepatitis C Priority: Secondary Status: Chronic Qualifiers: Viral hepatitis chronicity: chronic Hepatic coma status: without hepatic coma Qualified Code(s): B18.2 - Chronic viral hepatitis C (8) Hypokalemia Priority: Primary Status: Resolved (9) Hypophosphatemia Priority: Primary Status: Resolved Hospital course: Ms. Winslow is a 61 year old female with the above medical problems, who was admitted with malaise, cough, dyspnea and flu-like symptoms. She was noted to be septic; chest XRay showed no acute infiltrates; respiratory viral panel tested positive for Influenza B. she was started on IV hydration, Tamiflu, empiric antibiotics- Cefepime and Zithromax for bacterial superinfection, supportive care, bronchodilators nebulizers, supplemental O2. Blood and sputum cultures, urine Legionella and strep pneumoniae Ag negative; deescalated to Rocephin and Zithromax. Serial EKGs were checked due to interaction between Zithromax and HIV meds; QTc around 400. Patient reported having been on Levaquin several times in the past. Her symptoms have significantly improved, saturating well on room air and is medically stable for discharge with outpatient f/up. Patient has requested for a prescription for Percocet for right leg sciatica pain, claiming that her PCP prescribes it regularly; however [facility] report showed that the last refill was in January 2017, after which she has been on Suboxone until Jun 2017, and nothing was filled after that. So she will not be given narcotic prescription. Discharge discussed with: patient Time spent discussing smoking cessation with patient: 3 to 10 minutes - Time Spent with Patient Total time spent providing and/or coordinating discharge services: Greater than 30 minutes (45 min) - Discharge Medications Prescriptions: GuaiFENesin ER [Mucinex] 600 mg PO BID #10 tbbp.12hr levoFLOXacin [Levaquin] 500 mg PO DAILY #1 tablet Oseltamivir Phosphate [Tamiflu] 30 mg PO BID #2 capsule Home Medications: ALPRAZolam [Xanax 1 MG Tablet] 1 mg PO TID PRN 09/09/17 [History] Albuterol Sulfate [Albuterol Inhaler] 1 - 2 puff IH Q4-6H PRN 09/09/17 [History] Baclofen [Lioresal] 10 mg PO HS 09/09/17 [History] Dronabinol [Marinol] 5 mg PO TID 09/09/17 [History] Efavirenz/Emtricitab/Tenofovir [Atripla Tablet] 1 tab PO DAILY 09/09/17 [History ] Ergocalciferol (VITAMIN D2) [Vitamin D2] 50,000 unit PO 2XW 09/09/17 [History] HydrOXYzine Pamoate [Vistaril] 50 mg PO QID 09/09/17 [History] Omeprazole [PriLOSEC] 20 mg PO DAILY 09/09/17 [History] Pregabalin [Lyrica] 150 mg PO TID 09/09/17 [History] Promethazine HCl 12.5 mg PO Q8H PRN 09/09/17 [History] Tiotropium [Spiriva] 18 mcg IH DAILY 09/09/17 [History] GuaiFENesin ER [Mucinex] 600 mg PO BID #10 tbbp.12hr 09/13/17 [Rx] Oseltamivir Phosphate [Tamiflu] 30 mg PO BID #2 capsule 09/13/17 [Rx] levoFLOXacin [Levaquin] 500 mg PO DAILY #1 tablet 09/13/17 [Rx] Allergies/Adverse Reactions: 3 Allergy/AdvReac Type Severity Reaction Status Date / Time No Known Allergies Allergy Verified 01/22/16 18:26 Date of admission: 09/09/17 16:48 Primary care physician: Howie Peacock MD Discharging clinician: Shea Macario Anticipated date of discharge: 09/13/17 - Constitutional Vitals: Temp Pulse Resp BP Pulse Ox 98.4 F 82 19 119/78 98 09/13/17 07:20 09/13/17 07:20 09/13/17 07:43 09/13/17 07:20 09/13/17 07:43 General appearance: Present: cachectic, A&O X 3, answers questions appropriately - Respiratory Respiratory exam: Present: CTAB. Absent: accessory muscle use, rales, rhonchi, wheezes - Patient Status Disposition: Home, Self-Care Condition: Good Functional capacity at discharge: independent ambulation Overall status at discharge: patient is progressing back to baseline - Discharge Instructions Instructions: Influenza (DC) Follow Up With: Howie Peacock MD [Primary Care Provider] - Additional Instructions: F/up with PCP in 1-2 weeks - Diet and Activity Activity: resume usual activities as tolerated Diet: low fat, low cholesterol, low salt diet
--- NOTE | 2017-09-15 18:33 | Electrocardiograph Report ---
[address] [address] Test Date: 2017-09-13 Pat Name: Cayla Winslow Department: 115 Room: 3A Gender: F Pharmacy Coordinator: BASIA : 1955 Requested By: Shea Macario Order Number: [id number] Reading MD: Marvel Flower Measurements Intervals [place] Rate: 82 P: 68 MS: 149 QRS: 80 QRSD: 93 T: 67 QT: 363 QTc: 401 Interpretive Statements SINUS RHYTHM Electronically Signed On 09-15-2017 18:31:30 EST by Marvel Flower
== END 2017-09-13 12:36 | disposition home or self-care (01) | DRG 892 ==
LOC: EMEROO 13:02 → 3ANU 16:48
PROVIDERS: ADMIT Family Medicine; ATTEND Internal Medicine

== ENCOUNTER 2018-01-06 13:02 | Observation (INO) ==
[2018-01-06] MEDS ORDERED: Ipratropium/Albuterol Neb 3 ML IH ONE (13:07)
--- NOTE | 2018-01-06 13:12 | Emergency Department Note ---
Disposition Clinical Impression: COPD exacerbation Disposition: Admitted As Inpatient Condition: Fair Referrals: Howie Peacock MD [Primary Care Provider] - Forms: ED Satisfaction Letter Time of Disposition: 15:22 SOB HPI - General Chief Complaint: ED Upper Respiratory Infection Stated Complaint: cough, sore throat, headache Time Seen by Provider: 01/06/18 13:05 Source: EMS Mode of arrival: ambulatory Limitations: no limitations Nursing Notes Reviewed: Yes Vital Signs Reviewed: Yes - History of Present Illness 62-year-old female HIV positive, COPD comes in with increasing shortness of breath cough. Says she vomited once. 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 Context: other (HIV and COPD) Severity: moderate Consistency/Duration: constant Improves with: nothing Worsens with: exertion Known history of: COPD, HIV Associated symptoms: Reports: fever, cough, wheezing Treatment prior to arrival: oxygen Cough present: Yes Cough Description: Involuntary Cough Frequency: Intermittent - Related Data Home Medications Medication Instructions Recorded Confirmed ALPRAZolam [Xanax 1 MG Tablet] 1 mg PO TID PRN 09/09/17 09/09/17 Albuterol Sulfate [Albuterol 1 - 2 puff IH Q4-6H PRN 09/09/17 09/09/17 Inhaler] Baclofen [Lioresal] 10 mg PO HS 09/09/17 09/09/17 Dronabinol [Marinol] 5 mg PO TID 09/09/17 09/09/17 Efavirenz/Emtricitab/Tenofovir 1 tab PO DAILY 09/09/17 09/09/17 [Atripla Tablet] Ergocalciferol (VITAMIN D2) 50,000 unit PO 2XW 09/09/17 09/09/17 [Vitamin D2] HydrOXYzine Pamoate [Vistaril] 50 mg PO QID 09/09/17 09/09/17 Omeprazole [PriLOSEC] 20 mg PO DAILY 09/09/17 09/09/17 Pregabalin [Lyrica] 150 mg PO TID 09/09/17 09/09/17 Promethazine HCl 12.5 mg PO Q8H PRN 09/09/17 09/09/17 Tiotropium [Spiriva] 18 mcg IH DAILY 09/09/17 09/09/17 Previous Rx's Medication Instructions Recorded GuaiFENesin ER [Mucinex] 600 mg PO BID #10 tbbp.12hr 09/13/17 Oseltamivir Phosphate [Tamiflu] 30 mg PO BID #2 capsule 09/13/17 levoFLOXacin [Levaquin] 500 mg PO DAILY #1 tablet 09/13/17 Allergies Allergy/AdvReac Type Severity Reaction Status Date / Time No Known Allergies Allergy Verified 01/06/18 13:09 All systems ED: reviewed and negative except as stated. Constitutional: Denies: fever, chills, weakness, weight change Eyes: Denies: eye pain, eye discharge, vision change ENT ED: Denies: ear pain, throat pain, dental pain, hearing loss, epistaxis, congestion, dysphagia Cardiovascular: Denies: chest pain, palpitations, dyspnea on exertion, edema, syncope Respiratory: Reports: cough, dyspnea, wheezes. Denies: hemoptysis, stridor Gastrointestinal: Reports: nausea, vomiting. Denies: abdominal pain, diarrhea, constipation, hematemesis, melena, hematochezia Genitourinary: Denies: dysuria, frequency, hematuria, discharge Musculoskeletal: Denies: back pain, neck pain, arthralgia, myalgia Integumentary: Denies: rash, abrasion, lesions Neurological: Denies: headache, weakness, numbness, paresthesias, confusion, abnormal gait, vertigo Psychiatric: Denies: anxiety, depression, suicidal thoughts, homicidal thoughts , auditory hallucinations, visual hallucinations Endocrine: Denies: fatigue Hematological/Lymphatic: Denies: easy bleeding, easy bruising Allergic/Immunologic: Denies: facial swelling, urticaria Past Medical History - Past Medical History Medical history: Reports: COPD, fibromyalgia, hepatitis, HIV/AIDS Surgical history: Reports: non-contributory Psychiatric history: Reports: anxiety, panic disorder, PTSD - Social History Smoking Status: Current every day smoker Smokeless Tobacco Status: No Alcohol use: Reports: none Drug use: Reports: none Physical Exam - General Limitations: no limitations General appearance: alert, in no apparent distress - Head Head exam: atraumatic, normocephalic, normal inspection - Eye Eye exam: Present: normal appearance, PERRL, EOMI - ENT ENT exam: normal exam, normal oropharynx, mucous membranes moist - Neck Neck exam: Present: normal inspection, full ROM, trachea midline - Chest Chest inspection: Present: normal inspection, symmetric chest wall rise - Respiratory Respiratory exam: Present: wheezes, accessory muscle use, prolonged expiratory phase - Cardiovascular Cardiovascular exam: Present: regular rate, normal rhythm, normal heart sounds - Abdominal Exam Abdominal exam: Present: soft, Non-Tender. Absent: tenderness, distention, guarding, rebound, rigidity - Extremities Exam Extremities exam: Present: normal inspection, full ROM. Absent: tenderness, pedal edema - Expanded Lower Extremity Exam Neurovascular/Tendon exam: Absent: motor deficit, sensory deficit, tendon deficit Gait: observed and normal - Back Exam Back exam: Present: normal inspection, full ROM. Absent: tenderness - Neurological Exam Neurological exam: Present: alert, oriented X3 - Psychiatric Psychiatric exam: Present: normal affect, normal mood - Skin Skin exam: Present: warm, dry, intact, normal color Course - Reevaluation(s) Time: 15:21 - Consultations Consultation #1: Discussed with Dr. Pelletier, admit Time: 15:21 Additional Consultation(s): 62-year-old with a history of COPD comes in with increasing shortness of breath cough. Be admitted for a exacerbation of COPD. Vital Signs Temperature 98.5 F 01/06/18 13:06 Pulse Rate 92 01/06/18 13:06 Respiratory Rate 18 01/06/18 13:06 Blood Pressure 115/54 01/06/18 13:06 O2 Sat by Pulse Oximetry 97 01/06/18 13:06 Temperature 98.5 F 01/06/18 13:06 Pulse Rate 106 01/06/18 14:19 Respiratory Rate 18 01/06/18 14:19 Blood Pressure 129/82 01/06/18 14:19 O2 Sat by Pulse Oximetry 96 01/06/18 14:19 Oxygen Delivery Oxygen Delivery Nasal Cannula Shortness of Breath/Dyspnea - Lab Data Result diagrams: 01/06/18 13:20 01/06/18 13:20 Lab Results 01/06/18 01/06/18 01/06/18 Range/Units 13:20 13:20 13:20 WBC 6.8 (4.3-11.1) K/mcL RBC 5.42 H (3.82-4.97) M/mcL Hgb 17.0 H (11.5-15.4) g/dL Hct 50.1 H (35.3-44.9) % MCV 92.4 (83.0-100.0) fL MCH 31.4 (28.0-33.3) pg MCHC 33.9 (31.6-35.5) g/dL RDW 13.1 (11.5-14.5) % Plt Count 154 (140-400) K/mcL MPV 10.4 (9.4-12.4) fL Immature Gran % 0.4 (0-4) % Seg Neutrophils % 68.6 % Lymphocytes % 17.6 % Monocytes % 12.1 % Eosinophils % 0.7 % Basophils % 0.6 % Neutrophils # 4.7 (1.6-8.9) K/mcL Lymphocytes # 1.2 (0.6-4.6) K/mcL Monocytes # 0.8 (0.0-1.3) K/mcL Eosinophils # 0.1 (0.0-0.6) K/mcL Basophils # 0.0 (0.0-0.2) K/mcL Sodium 136 (136-145) mEq/L Potassium 4.3 (3.5-5.1) mEq/L Chloride 106 (98-107) mEq/L Carbon Dioxide 25 (23-29) mEq/L BUN 18 (8-23) mg/dL Creatinine 1.02 (0.60-1.20) mg/dL Est GFR ( Amer) > 60 (> 60) Est GFR (Non-Af Amer) 55 L (> 60) BUN/Creatinine Ratio 18 (6-26) Glucose 113 H (70-105) mg/dL Calculated Osmolality 285 (280-300) Lactic Acid 0.9 (0.5-2.2) mmol/L Calcium 9.5 (8.6-10.3) mg/dL Troponin I < 0.03 (< 0.04) ng/mL B-Natriuretic Peptide (Less than 100) pg/mL 01/06/18 Range/Units 13:20 WBC (4.3-11.1) K/mcL RBC (3.82-4.97) M/mcL Hgb (11.5-15.4) g/dL Hct (35.3-44.9) % MCV (83.0-100.0) fL MCH (28.0-33.3) pg MCHC (31.6-35.5) g/dL RDW (11.5-14.5) % Plt Count (140-400) K/mcL MPV (9.4-12.4) fL Immature Gran % (0-4) % Seg Neutrophils % % Lymphocytes % % Monocytes % % Eosinophils % % Basophils % % Neutrophils # (1.6-8.9) K/mcL Lymphocytes # (0.6-4.6) K/mcL Monocytes # (0.0-1.3) K/mcL Eosinophils # (0.0-0.6) K/mcL Basophils # (0.0-0.2) K/mcL Sodium (136-145) mEq/L Potassium (3.5-5.1) mEq/L Chloride (98-107) mEq/L Carbon Dioxide (23-29) mEq/L BUN (8-23) mg/dL Creatinine (0.60-1.20) mg/dL Est GFR ( Amer) (> 60) Est GFR (Non-Af Amer) (> 60) BUN/Creatinine Ratio (6-26) Glucose (70-105) mg/dL Calculated Osmolality (280-300) Lactic Acid (0.5-2.2) mmol/L Calcium (8.6-10.3) mg/dL Troponin I (< 0.04) ng/mL B-Natriuretic Peptide 16 (Less than 100) pg/mL - EKG Data EKG attestation: Yes I reviewed and interpreted this EKG. EKG shows normal: Reports: sinus rhythm Rate: Reports: normal Rhythm: Reports: NSR [place]/QRS: Reports: normal When compared to previous EKG there are: no significant changes (09/13/2017) Interpretation: Reports: no acute changes
[2018-01-06 13:37] LABS: Basophils % 0.6 %; Eosinophils # 0.1 K/mcL (0.0-0.6); Eosinophils % 0.7 %; Hematocrit 50.1 % (35.3-44.9); Immature Granulocytes % 0.4 % (0-4); Lymphocytes # 1.2 K/mcL (0.6-4.6); Lymphocytes % 17.6 %; Mean Corpuscular HGB Conc 33.9 g/dL (31.6-35.5); Mean Corpuscular Hemoglobin 31.4 pg (28.0-33.3); Mean Corpuscular Volume 92.4 fL (83.0-100.0); Mean Platelet Volume 10.4 fL (9.4-12.4); Monocytes # 0.8 K/mcL (0.0-1.3); Monocytes % 12.1 %; Neutrophils # 4.7 K/mcL (1.6-8.9); Platelet Count 154 K/mcL (140-400); Red Blood Count 5.42 M/mcL (3.82-4.97); Red Cell Distribution Width 13.1 % (11.5-14.5); Segmented Neutrophils % 68.6 %
[2018-01-06 13:57] LABS: BUN/Creatinine Ratio 18 (6-26); Blood Urea Nitrogen 18 mg/dL (8-23); Calcium 9.5 mg/dL (8.6-10.3); Carbon Dioxide 25 mEq/L (23-29); Chloride 106 mEq/L (98-107); Glucose 113 mg/dL (70-105); Osmolality,Calculated 285 (280-300); Potassium 4.3 mEq/L (3.5-5.1); Sodium 136 mEq/L (136-145); eGFR For African Americans > 60 (> 60); eGFR For Non-African Americans 55 (> 60)
[2018-01-06 13:59] LABS: Troponin I < 0.03 ng/mL (< 0.04)
[2018-01-06] MEDS ORDERED: *HR* OxyCODONE/APAP 5/325 TABLET PO ONE (14:29)
[2018-01-06 15:25] LABS: Alanine Aminotransferase 25 Units/L (7-52); Albumin 4.6 g/dL (3.5-5.7); Albumin/Globulin Ratio 1.5 (1.1-2.2); Alkaline Phosphatase 103 Units/L (34-104); Amylase 48 Units/L (29-103); Aspartate Amino Transferase 26 Units/L (13-39); Bilirubin,Direct 0.1 mg/dL (0.0-0.2); Bilirubin,Indirect 0.3 mg/dL (0.0-1.2); Bilirubin,Total 0.4 mg/dL (0.3-1.0); Globulin 3.1 g/dL (2.4-3.5); Lipase 21 Units/L (11-82); Total Protein 7.7 g/dL (6.4-8.9)
--- NOTE | 2018-01-06 15:56 | Electrocardiograph Report ---
[place] [employer] Test Date: 2018-01-06 Pat Name: Cayla Winslow Department: 103 Room: Gender: F Medical Coding Technician: NEREIDA : 1955 Requested By: Arun Tang Order Number: [id number] Reading MD: Steven Kwon Measurements Intervals [place] Rate: 93 P: 87 MA: 149 QRS: 96 QRSD: 88 T: 77 QT: 355 QTc: 406 Interpretive Statements SINUS RHYTHM POSSIBLE RIGHT ATRIAL ENLARGEMENT [0.25mV P WAVE] POSSIBLE LEFT ATRIAL ENLARGEMENT [-0.1mV P WAVE IN V1/V2] BORDERLINE RIGHT AXIS DEVIATION [QRS AXIS > 90] Electronically Signed On 01-06-2018 15:55:05 EDT by Steven Kwon
--- NOTE | 2018-01-06 18:00 | Internal Med History&Physical ---
Date of Encounter: 01/06/18 Time of Encounter: 17:00 Internal Medicine - H&P: HPI Chief complaint: Shortness of breath Admitted From: Home Plans for Post Hospital Care: Home History of present illness: Patient is a 62-year-old female with past medical history significant for HIV and COPD who presents to the ER on 01/06/18 due to shortness of breath. Patient reports a one-day history of shortness of breath in addition to sore throat/cough. Patient was concerned and decided to come into the ER for evaluation. In the ER, patient without leukocytosis febrile; this x-ray negative for infiltrates. Patient will be admitted to medical surgical floor for COPD exacerbation. Past Med Surg Social Fam HX - Past Medical History Medical history: COPD, fibromyalgia, hepatitis, HIV/AIDS Psychiatric history: anxiety, panic disorder, PTSD - Past Surgical History Surgical History: non-contributory - Social History Smoking Status: Current every day smoker Smokeless Tobacco Status: No Alcohol use: none Drug use: none - Family History Mother Living Status: Hx Family Cardiac Disorders: Yes (HTN) Hx Family Respiratory Disorders: No Hx Family Cancer: No Father Living Status: Hx Family Cardiac Disorders: Yes (quad bipass, heart attack, balloon sx) Hx Family Respiratory Disorders: No Hx Family Cancer: No Hx Family Endocrine Disorder: No Internal Medicine - H&P: Meds ALPRAZolam [Xanax 1 MG Tablet] 1 mg PO TID PRN 09/09/17 [History] Albuterol Sulfate [Albuterol Inhaler] 1 - 2 puff IH Q4-6H PRN 09/09/17 [History] Dronabinol [Marinol] 5 mg PO TID 09/09/17 [History] Efavirenz/Emtricitab/Tenofovir [Atripla Tablet] 1 tab PO DAILY 09/09/17 [History ] Ergocalciferol (VITAMIN D2) [Vitamin D2] 50,000 unit PO 2XW 09/09/17 [History] HydrOXYzine Pamoate [Vistaril] 50 mg PO QID 09/09/17 [History] Omeprazole [PriLOSEC] 20 mg PO DAILY 09/09/17 [History] Pregabalin [Lyrica] 150 mg PO TID 09/09/17 [History] Promethazine HCl 12.5 mg PO Q8H PRN 09/09/17 [History] Tiotropium [Spiriva] 18 mcg IH DAILY 09/09/17 [History] Oxycodone HCl [Oxaydo] 5 mg PO QID PRN 01/06/18 [History] 3 Allergy/AdvReac Type Severity Reaction Status Date / Time No Known Allergies Allergy Verified 01/06/18 13:09 All Systems PM: A 10-system review of systems was performed and is negative for pertinent findings except as documented above in the HPI. - Constitutional Vitals: Temp Pulse Resp BP Pulse Ox 98.5 F 92 16 114/83 96 01/06/18 13:06 01/06/18 16:33 01/06/18 16:33 01/06/18 16:33 01/06/18 16:33 General appearance: Present: A&O X 3, no acute distress, underweight - Eye Eye exam: Present: normal appearance - ENT ENT exam: Present: mucous membranes moist - Respiratory Respiratory exam: Present: CTAB. Absent: accessory muscle use, respiratory distress, rhonchi, wheezes, tachypnea - Cardiovascular Cardiovascular exam: Present: RRR, +S1, +S2. Absent: diastolic murmur, gallop, rubs, systolic murmur - GI/Abdominal GI/Abdominal exam: Present: soft, tenderness (Right upper quadrant tenderness to palpation) - Extremities Exam Extremities exam: Absent: pedal edema - Neurological Exam Neurological exam: Present: oriented X3 - Psychiatric Psychiatric exam: Present: normal mood - Skin Skin exam: Present: normal color Internal Med - H&P Results - Labs CBC & Chem 7: 01/06/18 13:20 01/06/18 13:20 - Assessment and plan (1) COPD exacerbation Current Visit: Yes Status: Acute Assessment and plan: Chest negative for any infiltrates and patient currently on room air Will continue dual nebs and IV azithromycin (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 Current Visit: No Status: Acute Assessment and plan: Will continue home medications (3) Hepatitis C Current Visit: No Status: Chronic Assessment and plan: Patient with known history of hepatitis C with right upper quadrant pain Right upper quadrant ultrasound pending Qualifiers: Viral hepatitis chronicity: chronic Hepatic coma status: without hepatic coma Qualified Code(s): B18.2 - Chronic viral hepatitis C (4) DVT prophylaxis Current Visit: Yes Status: Acute Assessment and plan: SCDs - Time Spent With Patient Total time spent is greater than 50% in coordination of care (as documented) at patient's floor/unit and/or counseling patient:
[2018-01-06] MEDS ORDERED: Naloxone 0.4 MG/ML INJ IVP PRN (18:08)
[2018-01-06] MEDS ORDERED: Ipratropium/Albuterol Neb 3 ML ONE (19:34)
[2018-01-06] MEDS: Ipratropium/Albuterol Neb 3 ML IH SCH ×2 (19:54→23:50)
[2018-01-06] MEDS: Azithromycin 500 MG in D5% in Water 250 ML IVPB SCH (20:06)
[2018-01-06] MEDS: ALPRAZolam 1 MG TABLET PO PRN (21:43)
[2018-01-06] MEDS: Pregabalin 75 MG CAPSULE PO SCH (22:32)
[2018-01-07] MEDS: Ipratropium/Albuterol Neb 3 ML IH SCH ×6 (03:42→23:33)
[2018-01-07] MEDS: *HR* OxyCODONE Immed Rel 5 MG TABLET PO PRN ×3 (05:42→20:00)
[2018-01-07 06:27] LABS: Basophils % 0.5 %; Eosinophils # 0.1 K/mcL (0.0-0.6); Eosinophils % 1.8 %; Immature Granulocytes % 0.5 % (0-4); Lymphocytes # 1.8 K/mcL (0.6-4.6); Lymphocytes % 33.2 %; Mean Corpuscular HGB Conc 33.4 g/dL (31.6-35.5); Mean Corpuscular Hemoglobin 31.3 pg (28.0-33.3); Mean Corpuscular Volume 93.8 fL (83.0-100.0); Mean Platelet Volume 11.2 fL (9.4-12.4); Monocytes # 0.8 K/mcL (0.0-1.3); Monocytes % 14.7 %; Neutrophils # 2.7 K/mcL (1.6-8.9); Platelet Count 145 K/mcL (140-400); Red Blood Count 4.69 M/mcL (3.82-4.97); Red Cell Distribution Width 13.4 % (11.5-14.5); Segmented Neutrophils % 49.3 %
[2018-01-07 06:28] LABS: Hemoglobin 14.7 g/dL (11.5-15.4)
[2018-01-07 06:49] LABS: BUN/Creatinine Ratio 22 (6-26); Blood Urea Nitrogen 21 mg/dL (8-23); Calcium 9.1 mg/dL (8.6-10.3); Carbon Dioxide 28 mEq/L (23-29); Chloride 107 mEq/L (98-107); Glucose 119 mg/dL (70-105); Osmolality,Calculated 294 (280-300); Potassium 4.2 mEq/L (3.5-5.1); Sodium 140 mEq/L (136-145); eGFR For African Americans > 60 (> 60); eGFR For Non-African Americans 58 (> 60)
[2018-01-07] MEDS: EFAVIRENZ/EMTRICITAB/TENOFOVIR 1 EACH TABLET PO SCH (09:34)
[2018-01-07] MEDS: Pregabalin 75 MG CAPSULE PO SCH ×3 (09:34→19:35)
[2018-01-07] MEDS: ALPRAZolam 1 MG TABLET PO PRN ×2 (09:40→19:35)
--- NOTE | 2018-01-07 11:50 | Internal Med Progress Note ---
Date of Encounter: 01/07/18 Time of Encounter: 11:49 - Assessment and plan (1) COPD exacerbation Current Visit: Yes Status: Acute Assessment and plan: Chest negative for any infiltrates and patient currently on room air Will continue dual nebs and IV azithromycin Oxygen as needed to maintain SPO2 greater than 92% (2) Hepatitis C Current Visit: No Status: Chronic Assessment and plan: Patient with known history of hepatitis C with right upper quadrant pain on admission. Presently no pain. 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 Denies any shortness of breath. B respiratory distress - Constitutional Vitals: Temp Pulse Resp BP Pulse Ox 98 F 86 16 109/68 98 01/07/18 07:24 01/07/18 07:24 01/07/18 11:29 01/07/18 07:24 01/07/18 11:29 General appearance: Present: A&O X 3, no acute distress, underweight - Head Head exam: Present: atraumatic, normocephalic - Eye Eye exam: Present: PERRL, conjuntiva pink, sclera anicteric Pupils: Present: PERRL - Neck Neck exam general surgery: Present: supple, trachea midline. Absent: lymphadenopathy - Respiratory Respiratory exam: Present: CTAB. Absent: accessory muscle use, rales, rhonchi, wheezes - Cardiovascular Cardiovascular exam: Present: RRR, +S1, +S2. Absent: diastolic murmur, gallop, rubs, systolic murmur - GI/Abdominal GI/Abdominal exam: Present: normal bowel sounds, soft, no peritoneal signs. Absent: distended, tenderness - Extremities Exam Extremities exam: Present: warm, radial pulses palpable and symmetrical. Absent : calf tenderness, cyanotic, pedal edema - Neurological Exam Neurological exam: Present: CN II-XII intact, oriented X3, no focal deficits. Absent: pronater drift, facial droop, speech deficit - Skin Skin exam: Present: dry, intact Internal Medicine: Result - Labs CBC & Chem 7: 01/07/18 05:02 01/07/18 05:02 Labs: Short CBC 01/07/18 Range/Units 05:02 WBC 5.5 (4.3-11.1) K/mcL Hgb 14.7 D (11.5-15.4) g/dL Hct 44.0 (35.3-44.9) % Plt Count 145 (140-400) K/mcL Neutrophils # 2.7 (1.6-8.9) K/mcL BMP 01/07/18 05:02 Sodium 140 Potassium 4.2 Chloride 107 Carbon Dioxide 28 BUN 21 Creatinine 0.97 Glucose 119 H Calcium 9.1 - VTE Reasons for not Prescribing Prophylaxis: Treatment not Indicated - Low risk for VTE Consult Discharge Plan - Plan Referrals: Howie Peacock MD [Primary Care Provider] -
[2018-01-07] MEDS: Azithromycin 500 MG in D5% in Water 250 ML IVPB SCH (18:38)
[2018-01-08] MEDS: Ipratropium/Albuterol Neb 3 ML IH SCH ×3 (04:19→11:32)
[2018-01-08] MEDS: *HR* OxyCODONE Immed Rel 5 MG TABLET PO PRN (04:19)
[2018-01-08 04:44] LABS: Basophils % 0.6 %; Eosinophils # 0.1 K/mcL (0.0-0.6); Eosinophils % 1.5 %; Hematocrit 41.7 % (35.3-44.9); Hemoglobin 13.5 g/dL (11.5-15.4); Immature Granulocytes % 0.6 % (0-4); Lymphocytes # 1.7 K/mcL (0.6-4.6); Lymphocytes % 31.3 %; Mean Corpuscular HGB Conc 32.4 g/dL (31.6-35.5); Mean Corpuscular Hemoglobin 30.2 pg (28.0-33.3); Mean Corpuscular Volume 93.3 fL (83.0-100.0); Mean Platelet Volume 10.8 fL (9.4-12.4); Monocytes # 0.6 K/mcL (0.0-1.3); Monocytes % 10.6 %; Platelet Count 143 K/mcL (140-400); Red Blood Count 4.47 M/mcL (3.82-4.97); Red Cell Distribution Width 13.6 % (11.5-14.5); Segmented Neutrophils % 55.4 %
[2018-01-08 04:54] LABS: BUN/Creatinine Ratio 17 (6-26); Blood Urea Nitrogen 18 mg/dL (8-23); Calcium 9.2 mg/dL (8.6-10.3); Carbon Dioxide 26 mEq/L (23-29); Chloride 110 mEq/L (98-107); Glucose 106 mg/dL (70-105); Osmolality,Calculated 296 (280-300); Sodium 142 mEq/L (136-145); eGFR For African Americans > 60 (> 60); eGFR For Non-African Americans 52 (> 60)
[2018-01-08] MEDS: Pregabalin 75 MG CAPSULE PO SCH (09:00)
[2018-01-08] MEDS: ALPRAZolam 1 MG TABLET PO PRN (09:00)
[2018-01-08] MEDS: EFAVIRENZ/EMTRICITAB/TENOFOVIR 1 EACH TABLET PO SCH (09:06)
[2018-01-08 10:52] VITALS: BP 131/70
--- NOTE | 2018-01-08 12:18 | Discharge Summary ---
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 Winslow is a 62 year old female past medical history for HIV COPD hepatitis. Patient presented to the emergency department with complaints of shortness of breath sore throat and cough. Chest x-ray with no acute process lab work was unremarkable no leukocytosis patient is afebrile she was admitted with COPD exacerbation. She was given IV azithromycin as well as bronchodilators. Patient had no wheezing during admission cough with clear sputum no fever or elevation of white count. Patient did have abdominal pain has history of hepatitis right upper quadrant ultrasound unremarkable. Lab work stable patient states that pain is much improved and that this occurs frequently. Her respiratory status improved patient only complains of some congestion feels much better. Oxygen saturation is stable. Advised patient to continue with azithromycin which I will give her prescription for 4 more days she has received 2 doses here patient states she does have inhalers at home I will send her home with prescription for DuoNeb's and machine. Advised patient to follow-up with PCP since this provider knows her best and can adjust medications accordingly. Patient does not appear to be in any respiratory distress lung sounds are clear no wheezing Patient is requesting pain medications she states that she missed her pain clinic appointment. Advised patient to call and reschedule appointment patient is is agreeable and is attempting to reschedule. She is hemodynamically stable at this time and ready for discharge. Discharge discussed with: patient - Time Spent with Patient Total time spent providing and/or coordinating discharge services: - Discharge Medications Prescriptions: Ipratropium/Albuterol Neb [Duoneb] 3 ml IH Q6HR #30 vial.neb Azithromycin [Zithromax] 250 mg PO DAILY #4 tablet Home Medications: ALPRAZolam [Xanax 1 MG Tablet] 1 mg PO TID PRN 09/09/17 [History] Albuterol Sulfate [Albuterol Inhaler] 1 - 2 puff IH Q4-6H PRN 09/09/17 [History] Dronabinol [Marinol] 5 mg PO TID 09/09/17 [History] Efavirenz/Emtricitab/Tenofovir [Atripla Tablet] 1 tab PO DAILY 09/09/17 [History ] Ergocalciferol (VITAMIN D2) [Vitamin D2] 50,000 unit PO 2XW 09/09/17 [History] HydrOXYzine Pamoate [Vistaril] 50 mg PO QID 09/09/17 [History] Omeprazole [PriLOSEC] 20 mg PO DAILY 09/09/17 [History] Pregabalin [Lyrica] 150 mg PO TID 09/09/17 [History] Promethazine HCl 12.5 mg PO Q8H PRN 09/09/17 [History] Tiotropium [Spiriva] 18 mcg IH DAILY 09/09/17 [History] Oxycodone HCl [Oxaydo] 5 mg PO QID PRN 01/06/18 [History] Azithromycin [Zithromax] 250 mg PO DAILY #4 tablet 01/08/18 [Rx] Ipratropium/Albuterol Neb [Duoneb] 3 ml IH Q6HR #30 vial.neb 01/08/18 [Rx] Allergies/Adverse Reactions: 3 Allergy/AdvReac Type Severity Reaction Status Date / Time No Known Allergies Allergy Verified 01/06/18 13:09 Date of admission: 01/06/18 16:34 Primary care physician: Howie Peacock MD Consults: 01/07/18 08:54 Consult to Nurse Navigator [CONS] Routine Comment: COPD Discharging clinician: Buffy Casey Anticipated date of discharge: 01/08/18 - Constitutional Vitals: Temp Pulse Resp BP Pulse Ox 98.2 F 94 20 131/70 98 01/08/18 10:49 01/08/18 10:49 01/08/18 10:49 01/08/18 10:49 01/08/18 10:49 General appearance: Present: A&O X 3, no acute distress, underweight - Head Head exam: Present: atraumatic, normocephalic - Eye Eye exam: Present: PERRL, conjuntiva pink, sclera anicteric Pupils: Present: PERRL - Neck Neck exam general surgery: Present: supple, trachea midline. Absent: lymphadenopathy - Respiratory Respiratory exam: Present: CTAB. Absent: accessory muscle use, rales, rhonchi, wheezes - Cardiovascular Cardiovascular exam: Present: RRR, +S1, +S2. Absent: diastolic murmur, gallop, rubs, systolic murmur - GI/Abdominal GI/Abdominal exam: Present: normal bowel sounds, soft, no peritoneal signs. Absent: distended, tenderness - Extremities Exam Extremities exam: Present: warm, radial pulses palpable and symmetrical. Absent : calf tenderness, cyanotic, pedal edema - Neurological Exam Neurological exam: Present: CN II-XII intact, oriented X3, no focal deficits. Absent: pronater drift, facial droop, speech deficit - Skin Skin exam: Present: dry, intact - Patient Status Disposition: Home, Self-Care Condition: Fair Overall status at discharge: patient is back to baseline - Discharge Instructions Instructions: Chronic Obstructive Pulmonary Disease (DC) Follow Up With: Howie Peacock MD [Primary Care Provider] - 01/11/18 10:15 am (Follow up appointment has been requested. ) - Diet and Activity Activity: resume usual activities as tolerated Diet: regular diet - VTE Reasons for not Prescribing Prophylaxis: Treatment not Indicated - Low risk for VTE
== END 2018-01-08 15:15 | disposition home or self-care (01) ==
LOC: 3BNU 13:02 → EMEROO 13:02 → 3BNU 18:30
PROVIDERS: ADMIT Hospitalist; ATTEND Hospitalist